=== PATIENT | female | born 1945 | race Caucasian/White ===

== ENCOUNTER 2017-07-28 11:18 | Outpatient (CLI) | payer BC ==
--- NOTE | 2017-07-28 11:55 | RAD ---
CHEST TWO VIEWS: History: Bronchitis. Comparison: None. FINDINGS: Mild S-shaped scoliosis of the thoracolumbar spine. No focal airspace consolidation, pneumothorax or effusion. Mild calcification of the transverse aorta. IMPRESSION: No acute intrathoracic abnormality. POS: [facility]
== END 2017-07-28 11:19 | disposition home or self-care (01) ==
LOC: SCSRAD 11:18
PROVIDERS: ATTEND Nurse Practitioner Family
DX: J40 Bronchitis, not specified as acute or chronic (principal)
CPT/HCPCS: 71046